=== PATIENT | male | born 1980 | race African-American/Black ===

== ENCOUNTER 2016-07-29 02:38 | Emergency (ER) ==
--- NOTE | 2016-07-29 02:52 | ED EKG INTERP ---
EKG Interpretation - EKG Time of EKG reading by physician:: 02:48 EKG Read and Signed by:: Jose Roberto Batista EKG Interpretation (*Must complete 3 of following elements*): Normal Rate: 67 Rhythm: NSR Attestation - Scribe Verification/Attestation Scribe:: Saeed Cramer Acting as Scribe for:: Jose Roberto Batista Scribe documention review:: This chart was documented by a scribe and accurately reflects the service the provider performed and the decisions made by the provider.
[2016-07-29 02:53] VITALS: BP 150/95
[2016-07-29] MEDS ORDERED: PERCOCET-10 PO ONE (02:57)
[2016-07-29] MEDS ORDERED: TORADOL IM ONE (02:57)
--- NOTE | 2016-07-29 03:06 | PROVIDER DOCUMENTATION ---
HPI-Chest Pain - General Stated Complaint: CP Time Seen by Provider: 07/29/16 02:57 Source: patient Allergies/Adverse Reactions: Patient Allergies Allergy/AdvReac Type Severity Reaction Status Date / Time No Known Allergies Allergy Verified 07/19/14 15:39 Home Medications: Home Medication List Medication Instructions Recorded Confirmed Last Taken Type Cetirizine HCl [Zyrtec] 10 mg PO DAILY #30 tablet 07/19/14 Unknown Rx Guaifenesin/Dextromethorphan 10 ml PO Q12H PRN PRN #180 ml 07/19/14 Unknown Rx [Delsym Cough+Chest Cngst Dm Lq] Ondansetron [Zofran] 4 mg PO Q6H PRN PRN #12 tablet 07/19/14 Unknown Rx - History of Present Illness-CP Nature of Presenting Problem: Pt is a 36 yom who presents to ER with CC of chest pain that developed while at work. Pt reports that he fell asleep in his chair last nihgt, with his neck propped on his shoulder and woke up this am with neck pain. 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 Pt reports that he started to develop chest pain, and is reproducible on exam (upper chest pain on deep inspirations), and limited ROM. Location: reports: other (upper chest) Chest Pain Radiation: reports: no radiation Quality of Pain: reports: aching, cramping Severity in ED: moderate Onset/Duration: this evening Timing: still present, getting worse Context/Activities at Onset: reports: vigorous activity (work; heavy lifting) Modifying Factors: worse with: breathing (deep inspiration) Associated Symptoms: reports: back pain. denies: abdominal pain, diaphoresis, headache, nausea, shortness of breath, swelling/lump in chest, vomiting, weakness Review of Systems - Adult - REVIEW OF SYSTEMS - ADULT Constitutional: denies: chills, fever, fatique, night sweats, weight gain, weight loss Eyes: reports: no symptoms reported Ears, Nose, Mouth & Throat: reports: no symptoms reported Cardiovascular: reports: chest pain. denies: edema, heart murmur, irregular heart rate, orthopnea, palpitations, poor circulation, PND, syncope Respiratory: denies: chronic cough, cough, dyspnea on exertion, excessive sputum production, hemoptysis, pleurisy, shortness of breath, wheezing Gastrointestinal: reports: no symptoms reported Genitourinary: reports: no symptoms reported Musculoskeletal: reports: back pain (upper back pain), muscle aches, neck pain. denies: bone pain, frequent leg cramps, joint pain, joint swelling, muscle weakness Integumentary: reports: no symptoms reported Neurological: reports: no symptoms reported Psychiatric: reports: no symptoms reported Endocrine: reports: no symptoms reported Hematologic/Lymphatic: reports: no symptoms reported Allergic/Immunologic: reports: no symptoms reported All Other Systems: Reviewed and Negative Past History - Adult - PAST MEDICAL HISTORY-ADULT Review of Records: reports: Nursing Assessment Review, Medications Reviewed - IMMUNIZATION STATUS Childhood Immunizations: UTD, See Nurse Assessment Flu Vaccine: See Nurse Assessment Physical Exam-General - PHYSICAL EXAM-ADULT Initial Vital Signs Reviewed: Yes - CONSTITUTIONAL General Appearance: appears well, alert, moderate distress. negative: no apparent distress, mild distress, severe distress, cachetic, obese, thin, anxious, lethargic, slow to respond, obtunded, combative - NECK Neck: supple, C-spine tenderness, limited range of motion. negative: non-tender , full range of motion - RESPIRATORY Respiratory: chest non-tender, lungs clear, normal breath sounds. negative: respiratory distress, decreased breath sounds, accessory muscle use, wheezing - CARDIOVASCULAR Cardiovascular: normal peripheral pulses, regular rate, rhythm. negative: bradycardia, tachycardia, irregularly irregular - CHEST (BREASTS) Chest/Breast: no masses/lumps, tenderness (upper chest on deep inspiration). negative: no tenderness - GASTROINTESTINAL (ABDOMEN) Abdominal Exam: normal bowel sounds, non tender, soft. negative: abnormal bowel sounds, distended, tenderness, mass - MUSCULOSKELETAL Back Exam: no CVA tenderness, no vertebral tenderness, other (upper back pain). negative: CVA tenderness, decreased range of motion - SKIN Integumentary: normal color, normal turgor, warm/dry. negative: abrasion(s), ecchymosis, erythema, laceration(s), tenderness - NEUROLOGIC Neurologic: grossly normal, no motor/sensory deficits. negative: facial droop, focal weakness, motor weakness, sensory deficit - PSYCHIATRIC Psych/Mental Status: normal mood/affect, normal thought content, normal thought process, oriented x 3 Progress - PLAN OF CARE/RESULTS Progress/Plan/Lab Results: Vital Signs - 24 hr 07/29/16 02:52 Temperature 98.5 F Pulse Rate 73 Respiratory 18 Rate Blood Pressure 150/95 O2 Sat by Pulse 100 Oximetry Orders Category Date Time Status Ketorolac [Toradol] Med 07/29/16 02:57 Discontinued 60 mg IM NOW ONE Oxycodone/APAP 10 mg/325 mg [Percocet-10] Med 07/29/16 02:57 Discontinued 1 each PO NOW ONE EKG [EKG] Stat Ther 07/29/16 02:42 Ordered Departure - Departure Time of Disposition Order: 03:07 DIAGNOSIS: Chest wall pain, Muscle strain Disposition: HOME 01 Certified Medical Emergency: Emergent Condition: Stable Additional Instructions: ED Follow Up Instructions: You have been treated by a care provider in the Emergency Department. These instructions are being provided to you so you can have an understanding of how to care for yourself upon discharge. Upon discharge from the Emergency Department, you are responsible for making arrangements for follow-up care by a physician of your choice. Take all prescribed medications as directed. Return to the Emergency Department immediately for any new or worsening symptoms. You may call the Physician Referral phone number at [phone] to obtain a list of Physicians who are taking new patients. Attestation - Scribe Verification/Attestation Scribe:: Saeed Cramer Acting as Scribe for:: Jose Roberto Batista Scribe documention review:: This chart was documented by a scribe and accurately reflects the service the provider performed and the decisions made by the provider.
--- NOTE | 2016-07-31 10:45 | EKG Report ---
Test Performed on : 07/29/2016 02:48:42 AM Test Reason : cp Blood Pressure : / mmHG Vent. Rate : 067 BPM Atrial Rate : 067 BPM P-R Int : 132 ms QRS Dur : 088 ms QT Int : 414 ms P-R-T Axes : 040 -14 021 degrees QTc Int : 437 ms Normal sinus rhythm. Normal ECG No previous ECGs available Unconfirmed Result
== END 2016-07-29 03:56 | disposition home or self-care (01) ==
LOC: ED 02:38
DX: S29.011A Strain of muscle and tendon of front wall of thorax, initial encounter (principal); R07.89 Other chest pain; M54.2 Cervicalgia; M54.6 Pain in thoracic spine; M79.1 Myalgia
CPT/HCPCS: 93005; 96372; J1885